=== PATIENT | female | born 1980 | race Caucasian/White ===

== ENCOUNTER 2017-07-24 21:23 | Emergency (ER) | payer OTHER | END 2017-07-24 23:45 | disposition home or self-care (01) | LOC: FTE 21:23 | DX: R07.89 Other chest pain (principal); M94.0 Chondrocostal junction syndrome [Tietze] | CPT/HCPCS: 81025; 93005; 99283-25 ==

== ENCOUNTER 2018-02-10 11:46 | Day surgery (SDC) | payer OTHER ==
[~2018-02-10 11:46] MED LIST: LACTATED RINGER'S 1,000 ML IV; SOD CHLORIDE 0.9% 1,000 ML IV
[2018-02-10] MEDS ORDERED: LIDOCAINE 2% (SDV) 5 ML INJ (13:13)
[2018-02-10] MEDS ORDERED: PROPOFOL 20 ML (13:13)
[2018-02-10] MEDS ORDERED: MEPERIDINE /PF (100 MG/2 ML) AMPULE (13:13)
[2018-02-10] MEDS ORDERED: METOCLOPRAMIDE 10 MG INJ (13:19)
[2018-02-10] MEDS ORDERED: ONDANSETRON 4 MG INJ (13:19)
[2018-02-10] MEDS ORDERED: DIPHENHYDRAMINE 50 MG INJ IV (13:30)
[2018-02-10] MEDS ORDERED: MIDAZOLAM 1 MG/ML 2 ML INJ IV (13:30)
[2018-02-10] MEDS ORDERED: METOCLOPRAMIDE 10 MG INJ IV (13:30)
[2018-02-10] MEDS ORDERED: MEPERIDINE 25 MG INJ IV (13:30)
[2018-02-10] MEDS ORDERED: OXYCODONE/ACETAMINOPHEN (5/325) TAB PO (13:30)
[2018-02-10] MEDS ORDERED: FENTAnyl 50 MCG/ML VIAL IV ×2 (13:30)
[2018-02-10] MEDS ORDERED: CLINDAMYCIN 600 MG/D5W (PMX) 50 ML IVPB (13:33)
[2018-02-10] MEDS: EPINEPHrine 1 MG/ML 30 ML INJ INJ (13:53)
[2018-02-10] MEDS: BUPIVACAINE 0.25%/EPI (SDV) 30 ML INJ (13:53)
[2018-02-10] MEDS: FENTAnyl 50 MCG/ML VIAL IV (14:47)
[2018-02-10] MEDS: ONDANSETRON 4 MG INJ IV (14:47)
[2018-02-10] MEDS: OXYCODONE/ACETAMINOPHEN (5/325) TAB PO (14:57)
== END 2018-02-10 16:44 | disposition home or self-care (01) ==
LOC: SDS 11:46
DX: S83.281A Other tear of lateral meniscus, current injury, right knee, initial encounter (principal); M94.261 Chondromalacia, right knee; X58.XXXA Exposure to other specified factors, initial encounter; Y93.89 Activity, other specified; Y92.488 Other paved roadways as the place of occurrence of the external cause; Y99.8 Other external cause status
CPT/HCPCS: 29881